=== PATIENT | female | born 1965 | race Caucasian/White ===

== ENCOUNTER 2021-07-29 07:14 | Day surgery (SDC) | payer BC ==
[~2021-07-29] VITALS: Ht 177.8 cm; Wt 102.3 kg
[~2021-07-29 07:14] MED LIST: ASPIRIN EC81 MG PO; B COMPLEX1 EACH PO; K-TAB ER20 MEQ PO; MACA500 MG PO; MAGNESIUM30 MG PO; MULTIVITAMINS1 EAC7 PO; NATURE-THROID32.5 MG PO; OXAPROZIN600 MG PO; PROBIOTIC250 MG PO; VITAMIN D310 MC4 PO
--- NOTE | 2021-07-29 08:55 | NUR ---
07/29/21 0855 Krystyna Spaulding 0852 PATIENT ARRIVES TO PACU RESTING WITH EYES CLOSED. DOES NOT RESPOND TO VERBAL STIMULI. RESP EVEN AND UNLABORED, NC AT 3 LITERS TURNED OFF ON ARRIVAL.
--- NOTE | 2021-07-30 09:44 | OR ---
[facility] [place] [facility] [address], [place] [address] Signed DATE OF OPERATION: 07/29/2021 SURGEON: Calderon Villagomez MD PREOPERATIVE DIAGNOSES: 1. Hyperplastic colonic polyps at age 48 in 2013. 2. Minimal sigmoid diverticulosis. 3. Maternal grandmother with colon cancer in her early 60s. 4. Intermittent rectal bleeding. 5. Question of hemorrhoids. POSTOPERATIVE DIAGNOSES: 1. Minimal to moderate internal and external hemorrhoids. 2. Long redundant colon. 3. No obvious diverticula on this occasion. PROCEDURE: Colonoscopy without biopsy. ESTIMATED BLOOD LOSS: None. INDICATIONS: Manuela is a 55-year-old female, who was asked to see me for a followup colonoscopy. She has had intermittent constipation and rectal bleeding since she was quite young. In 1993, she underwent a colonoscopy. She then came in 2013 at the age of 48. I removed a tiny hyperplastic polyp in her sigmoid colon. She seemed to have very minimal shallow sigmoid diverticula at that time. She had done well with Versed and fentanyl. We know her maternal grandmother was diagnosed with colon cancer in early 60s. Manuela told me she does see some blood occasionally with her bowel movements. On her female exam, she thought maybe there were hemorrhoids mentioned. I had given her a brochure on hemorrhoids in the office. I encouraged her to purchase Benefiber and Balneol lotion to be used as needed. In the office, I had given her a booklet on colonoscopy. She remembers the test quite well. There is risk including, but not limited to gas bloating, crampy abdominal pain, bleeding, perforation requiring surgery, and missed diagnosis. We also reviewed the need for IV conscious sedation. She had expressed understanding and wished to proceed. PROCEDURE NOTE: Manuela was taken into our endoscopy suite and placed in the left lateral decubitus Electronically Signed By: CALDERON VILLAGOMEZ MD 07/30/21 0944 PATIENT NAME: MANUELA TORRES OPERATIVE REPORT DATE OF : 61 REPORT #: [id number] PHYSICIAN: CALDERON VILLAGOMEZ MD PCP: WILFREDO COPPOLA PAC REPORT IS CONFIDENTIAL AND NOT TO BE RELEASED WITHOUT AUTHORIZATION [facility] [address], [place] [address] Signed position. She reminded us that she drinks a little wine every night with her at suppertime. We gave her a total of 7 mg of Versed and 100 mcg of fentanyl. A digital rectal exam had been performed and she does have small circumferential external hemorrhoids. She has a good sphincter tone. 5 feet 10 inches tall, she has a long anal canal probably 4 cm in length. She had good sphincter tone. The adult colonoscope was introduced and advanced under direct visualization of camera. Again with her height, she has very long redundant colon. It took quite some time to get up through the left colon. We had to use extra sedation abdominal compression even rotating her into the supine position. In the end, she probably would benefit from monitored anesthesia care with propofol infusion. Fortunately, her prep was quite excellent. We could easily see the appendiceal orifice and the ileocecal valve. The scope was slowly withdrawn. On this occasion, we saw no diverticula. We saw no polyps. Once in the rectum, the scope was retroflexed and she does have just minimal internal hemorrhoid columns. After this, the gas was suctioned out and the colonoscope removed. Overall, Manuela tolerated the procedure well, but may need monitored anesthesia care in the future as described above. RECOMMENDATIONS: Manuela can follow up my office in 5 years for a repeat colonoscopy. She might consider monitored anesthesia care in the future. Calderon Villagomez MD ALB/MODL /[id number] cc: Wilfredo Villagomez MD Copies: CALDERON VILLAGOMEZ MD ~ Electronically Signed By: CALDERON VILLAGOMEZ MD 07/30/21 0944 PATIENT NAME: MANUELA TORRES OPERATIVE REPORT DATE OF : 61 REPORT #: [id number] PHYSICIAN: CALDERON VILLAGOMEZ MD PCP: WILFREDO COPPOLA PAC REPORT IS CONFIDENTIAL AND NOT TO BE RELEASED WITHOUT AUTHORIZATION
== END 2021-07-29 09:35 | disposition home or self-care (01) ==
LOC: DS 07:14 → OPS 07:14 → DS 08:15 → OPS 08:15
PROVIDERS: ATTEND Colon & Rectal Surgery
PROC: 0DJD8ZZ Inspection of Lower Intestinal Tract, Via Natural or Artificial Opening Endoscopic (ICD-10-PCS; principal; 2021-07-29 08:15)
DX: K64.8 Other hemorrhoids (principal); K64.4 Residual hemorrhoidal skin tags; Q43.8 Other specified congenital malformations of intestine; E03.9 Hypothyroidism, unspecified; Z80.0 Family history of malignant neoplasm of digestive organs; Z85.9 Personal history of malignant neoplasm, unspecified; Z88.5 Allergy status to narcotic agent; Z91.048 Other nonmedicinal substance allergy status; Z87.19 Personal history of other diseases of the digestive system
CPT/HCPCS: 99153; G0500; J2250; J3010; J7121

== ENCOUNTER 2023-07-12 09:03 | Inpatient (IN) | payer BC ==
[2023-07-12] VITALS (17 sets, daily range): BP systolic 103–1017; BP diastolic 72–100
[~2023-07-12] VITALS: Ht 177.8 cm; Wt 96.6 kg
[~2023-07-12 09:03] MED LIST changes: +K2 PLUS D3 TAB1 EACH PO; -MAGNESIUM30 MG PO; -MULTIVITAMINS1 EAC7 PO; +OPTIMAG 125125 MG PO; +PUREVIT DUALFE1 EACH PO; -VITAMIN D310 MC4 PO
[2023-07-12 09:30] LABS: BASOPHILS 1.3 % (0-2); EOSINOPHILS 2.9 % (0-6); HEMATOCRIT 45.4 % (35.0-50.0); HEMOGLOBIN 15.5 g/dL (12.0-18.0); LYMPHOCYTES 36.2 % (24-44); MCH 31.7 (27-36); MCHC 34.1 g/dl (30-36); MCV 92.7 fl (81-99); MONOCYTES 7.7 % (0-12); NEUTROPHILS 51.9 % (39-80); PLATELET COUNT 270 K/uL (140-440); RDW 12.6 (10.5-15.0)
[2023-07-12 09:52] LABS: ALBUMIN/GLOBULIN RATIO 1.18 (1.1-2.4); ANION GAP 11.1 (7-21); BILIRUBIN, TOTAL 0.8 ng/dL (0.2-1.0); BUN/CREATININE RATIO 17.07 (6.0-28.6); CREATININE, SERUM 0.82 mg/dL (0.55-1.02); POTASSIUM 4.1 mmol/L (3.5-5.1); PROTEIN, TOTAL 7.4 g/dL (6.4-8.2)
[2023-07-12 11:10] LABS: PROTIME 12.8 Sec (11.2-14.2)
[2023-07-12 11:12] LABS: PARTIAL THROMBOPLASTIN TIME 26.5 Sec (22.9-41.3)
[2023-07-12] MEDS ORDERED: PROGESTERONE100 MG PO (11:38)
[2023-07-12] MEDS ORDERED: DOTTI1 EACH TD (11:38)
[2023-07-12] MEDS ORDERED: COD LIVER OIL1 EAC4 PO (12:16)
[2023-07-12 12:43] LABS: INFLUENZA B NAA NEGATIVE (NEGATIVE); RESPIRATORY SYNCYTIAL VIR NAA NEGATIVE (NEGATIVE)
[2023-07-12] MEDS ORDERED: ARMOUR THYROID90 MG PO (12:58)
--- NOTE | 2023-07-12 13:35 | NUR ---
PT ARRIVES TO ROOM 127 VIA STRETCHER BY THIS RN - ALERT AND ORIENTED. VS WNL, NSR, SP02 100% ON ROOM AIR. PT AMBULATES SELF TO BATHROOM FROM STRETCHER, STEADY ON HER FEET WITHOUT SOB. LUNG SOUNDS CLEAR. HEPARIN DRIP INFUSING AT 18U/KG/HR INTO LEFT WRIST IV SITE. IV SITES PATENT X2. PAIN REPORTED IN LEFT SHOULDER ONLY, RATES 3/10, HOME LIDOCANE PATCH IN PLACE. PT HUNGRY, ORDER PLACED WITH KITCHEN. FAMILY AT BEDSIDE, ALL QUESTIONS ANSWERED. ORIENTED TO CALL LIGHT.
--- NOTE | 2023-07-12 14:30 | NUR ---
FOOD TRAY DELIVERED TO ROOM - PT REMAINS ALERT AND ORIENTED WITHOUT RESPIRATORY DISTRESS, VS ON MONITOR WNL INCLUDING 100% SPO2 ON ROOM AIR. ESTROGEN PATCH REMOVED FROM BIKINI AREA BY PT - EDUCATION ON ROLE OF ESTROGEN AND CLOTTING PROVIDED. PT DENIES FURTHER NEEDS AT THIS TIME.
--- NOTE | 2023-07-12 15:09 | NUR ---
RN ROUNDING ON PT - RESTING IN BED WITH EYES CLOSED, RR EVEN AND UNLABORED. VS WNL ON MONITOR. ON COUCH. CALL LIGHT IN REACH.
--- NOTE | 2023-07-12 17:00 | NUR ---
DINNER PROVIDED TO PT - RESTING COMFORTABLY IN BED. ASSESSMENT COMPLETE - NO CHANGES, LUNGS CLEAR, NSR ON MONITOR, DENIES PAIN OR SOB.
--- NOTE | 2023-07-12 17:25 | NUR ---
lab in room to draw timed aPTT.
--- NOTE | 2023-07-12 17:47 | NUR ---
PT ASSISTED UP TO BATHROOM TO VOID, STEADY ON FEET. AMBULATES WITHOUT SOB OR PAIN. BACK TO BED WITH TABLE AND CALL LIGHT IN REACH. AT SIDE.
--- NOTE | 2023-07-12 19:15 | NUR ---
CHANGE OF SHIFT REPORT FORM TYRONE Rueda RN, PATIENT LAST APPT LAB HIGH, SHE NOTIFIED , WAITING ON RE-DRAW RESULTS AT THIS TIME.
--- NOTE | 2023-07-12 19:15 | NUR ---
MADHAV SHAVER PATIENT, RE-DRAW RESULT OF APPT NOT BACK, HEPARIN DRIP ON STANBY AT THIS TIME WHILE WAITING RESULTS. PER REPORT AWARE OF INITIAL HIGH LAB RESULT. PATIENT IS ALERT AND ORIETNED, HER SPOUSE IN ROOM AT BEDSIDE, PATIENT REPORTS NO NEEDS AT THIS TIME, NO COMPLAINT OF PAIN OR NAUSEA. FRESH WATER PROVIDED, OFFERED TO SPOUSE HE DECLINED, ASSESSMENT COMPLETE.
--- NOTE | 2023-07-12 19:56 | NUR ---
NOTIFIED OF RE-DRAW LAB RESULTS, HE GAVE ORDER TO FOLLOW PROTOCOL, OF HOLDING HEPARIN DRIP FOR ONE HOUR THEN RESTART GTT PER PROTOCOL.
--- NOTE | 2023-07-12 21:01 | NUR ---
PATIENT OXYGEN SATURATION DROPPED TO 89-90% ON ROOM WHILE SLEEPING, THIS RN INTO PATIENT ROOM TO ASSESS, PATIENT REPORTS SHE DOES NOT HAVE A HISTORY OF SLEEP APNEA. PATIENT IS CURRENTLY SLEEPING ON HER BACK, THIS RN ASKED "DO YOU USUALLY SLEEP ON YOUR BACK?" SHE SAID "NO, I USUALLY SLEEP ON MY SIDE" DISCUSSED WITH PATIENT SHE CAN SLEEP ON HER SIDE IF SHE WOULD LIKE, SHE SAID "I WASNT SURE WITH ALL THESE LINES" THIS RN ASSISTED PATIENT TO REARRANGE MONITOR WIRES AND IV LINE FOR PATIENT TO TURN ON HER SIDE, ASSESSED LUNG SOUNDS NO CHANGE FROM START OF SHIFT, DISCUSSED IS HER OXYGEN SATURATION DROPS WHILE SLEEPING ON HER SIDE WE WILL PLACE OXYGEN FOR SLEEP, PATIENT AGREED.
--- NOTE | 2023-07-12 22:05 | NUR ---
PATIENT PLACED ON 2L OXYGEN N.C., WHILE SLEEPING TO MAINTAIN OXYGEN SATURATION GREATER THAN 90%, SHE HAS TURNED BACK TO SLEEPING ON HER BACK SHE REPORTS THAT SIDE SLEEPING IS NOT COMFORTABLE WITH HER SHOULDER PAIN. 96% OXYGEN SATURATION AT THIS TIME ON 2L VIA N.C.
[2023-07-13] VITALS (16 sets, daily range): BP systolic 91–127; BP diastolic 63–94
--- NOTE | 2023-07-13 | NUR ---
LAB DRAW FOR PTT, PATIENT UP TO BATHROOM TO VOID, TOLERATED ACTIVITY WELL WITH STANDBY ASSIST/CORD MANAGEMENT. PATIENT REPORTS SHE HAS NO DIZZINESS, NO SHORTNESS OF BREATH. VOIDED 500ML MILDLY CONCENTRATED YELLOW URINE. SHE HAS NO FURTHER REQUESTS, CALL LIGHT IN REACH.
--- NOTE | 2023-07-13 00:35 | NUR ---
HEPARIN DRIP ON STANDBY FOR ELEVATED >250 PTT LAB, CALLED TO UPDATE, HE SAID "CONTINUE PER PROTOCOL". HE GAVE ORDER TO HAVE APTT LABS EVERY 4 HOURS TO MONITOR MORE CLOSELY.
--- NOTE | 2023-07-13 01:30 | NUR ---
INTO PATIENT ROOM TO TITRATE AND RESTART HEPARIN DRIP, PATIENT ALERT TO STAFF AT BEDSIDE, SHE VERBALIZED NO NEEDS AT THIS TIME. JULES Bustamante RN SECOND CHECK FOR TITRATION OF HEPARIN DRIP. CALL LIGHT IN REACH. NEXT PPT LAB ORDERED FOR 0530.
--- NOTE | 2023-07-13 04:46 | NUR ---
PATIENT RESTING IN BED EYES CLOSED, RESPIRATION REGULAR AT 14/MIN, 97% OXYGEN SATURATION. SLIGHT SNORING NOTED.
--- NOTE | 2023-07-13 05:15 | NUR ---
LAB INTO PATIENT ROOM FOR 0530 TIMED PTT, PATIENT ALERT AND ORIENTED, SHE REPORTS PAIN IN LEFT SHOULD IS IMPROVING, AND TOLERABLE AT THIS TIME. PROVIDED FRESH ICE WATER AND ENCOURAGED HER TO DRINK MORE. SHE IS NOW ON ROOM AIR WHILE AWAKE.
[2023-07-13 05:26] LABS: BASOPHILS 1.3 % (0-2); HEMATOCRIT 42.2 % (35.0-50.0); HEMOGLOBIN 14.3 g/dL (12.0-18.0); LYMPHOCYTES 55.6 % (24-44); MCH 31.5 (27-36); MCHC 33.9 g/dl (30-36); MCV 92.7 fl (81-99); MONOCYTES 6.6 % (0-12); NEUTROPHILS 32.5 % (39-80); PLATELET COUNT 243 K/uL (140-440); RBC 4.56 M/ul (4.3-5.7); RDW 12.9 (10.5-15.0)
[2023-07-13 05:32] LABS: ANION GAP 10.5 (7-21); BUN/CREATININE RATIO 18.18 (6.0-28.6); CALCIUM 8.9 mg/dL (8.5-10.1); CREATININE, SERUM 0.77 mg/dL (0.55-1.02); POTASSIUM 4.5 mmol/L (3.5-5.1)
--- NOTE | 2023-07-13 05:48 | NUR ---
PT UP TO BATHROOM, VOIDED 300ML. SHE TOLERATED ACTIVITY WELL WITH ASSISTANCE WITH LINE MANAGEMENT. PATIENT UP IN RECLINER AT THIS TIME. V/S STABLE, ASSESSMENT COMPLETE. HEPARIN DRIP ON STANDBY PER PROTOCOL FOR 30MIN. NO NEW CONCERNS THIS AM.
--- NOTE | 2023-07-13 06:29 | NUR ---
PT UP TO BATHROOM TO VOID THEN BACK TO BED, TOLERATED ACTIVITY WELL WITH ASSISTANCE WITH MONITOR/IVF LINES. PT REPORTS NO OTHER NEEDS AT THIS TIME, CALL LIGHT IN REACH.
--- NOTE | 2023-07-13 07:56 | NUR ---
PT SITTING UP IN BED ON PHONE. ASSESSMENT COMPLETE. VSS. DISCUSSED LEFT SHOULDER PAIN WITH PT. PT HAS LIDOCAINE PATCH IN PLACE BUT REPORTS 5/10 ACHING PAIN WHEN SITTING UP. PT GIVEN MORNING MEDICATIONS SEE EMAR. HEPARIN DRIP CONTINUED. PT DENEIS OTHER NEEDS OR CONCERNS AT THIS TIME. CALL LIGHT AND BELONGINGS WITHIN REACH
--- NOTE | 2023-07-13 08:16 | NUR ---
CALL TO REGARDING PT'S UNRELIEVED LEFT SHOULDER PAIN. DR TO COME AND ASSESS PT.
--- NOTE | 2023-07-13 08:27 | NUR ---
MD IN ROOM. ASSESSMENT COMPLETED. ORDERS RECEIVED FOR HEAT/ICE THERAPY AND IV PAIN MEDICATIONS. PT AGREEABLE WITH PLAN AND REQUESTS ICE THERAPY.
--- NOTE | 2023-07-13 08:35 | NUR ---
MORPHINE 4 MG IV GIVEN FOR LEFT SHOULDER PAIN, RATES 5/10.
--- NOTE | 2023-07-13 09:41 | NUR ---
PATIENT ALERT AND ORIENTED. SITTING IN BED. STATES SHE LIVES IN A HOUSE WITH GOLD, SPOUSE. HOUSE DOES HAVE STAIRS, RECENTLY SHORT OF BREATH WHEN USING STAIRS, EDUCATED LIKELY DUE TO MULTIPLE PE'S. VERBALIZES UNDERSTANDING. OTHERWISE, NO ISSUES WITH STAIRS. PATIENT STATES SHE HAS NO DME AT HOME, NOT LIKELY TO NEED ANY AT THIS TIME. STATES SHE STILL DRIVES, BUT SPOUSE IS ABLE TO ASSIST WITH TRANSPORTATION IF NEEDED. DENIES ISSUES WITH FINANCES. STATES NO ISSUES OBTAINING FOOD, MEDICATIONS, ETC. SPOUSE CONFIRMS. DENIES ANY LIKELY NEEDS AT THIS TIME. DEMOGRAPHICS CONFIRMED. INFORMED TO NOTIFY STAFF IF NEEDS ARISE. VERBALIZE UNDERSTANDING.
--- NOTE | 2023-07-13 09:50 | NUR ---
PT UP TO BATHROOM AMBULATORY WITH RN IN ROOM. PT TOLERATES. PT VOIDS W/O DIFFICULTY AND BACK TO BED. YG KUHN ASSISTS IN HAIR CARE AND HYGIENE.
[2023-07-13] MEDS ORDERED: GRAPE SEED EXTR50 MG PO (10:05)
[2023-07-13] MEDS ORDERED: UVA URSI PO (10:05)
[2023-07-13] MEDS ORDERED: ADRENAL OPTIMI1 EACH PO (10:09)
--- NOTE | 2023-07-13 10:11 | NUR ---
MED REC COMPLETE
--- NOTE | 2023-07-13 10:50 | NUR ---
PT RESTING IN BED WITH EYES CLOSED. RESP EVEN AND UNLABORED. CALL LIGHT WITHIN REACH
--- NOTE | 2023-07-13 11:35 | NUR ---
lab in room to draw timed ptt lab
--- NOTE | 2023-07-13 11:56 | NUR ---
LUNCH TRAY BROUGHT IN ROOM. PT REPORTS HEAT THERAPY WORKED BETTER FOR HER SHOULDER PAIN. DENIES OTHER NEEDS.
--- NOTE | 2023-07-13 12:36 | NUR ---
LUNCH TRAY REMOVED. PT VISITING WITH FAMILY IN ROOM. PT DENIES OTHER NEEDS. PT REPORTS DECREASE IN PAIN IN SHOULDER. PT REQUESTING TO GET UP AND USE RESTROOM WHEN VISITORS LEAVE. CALL TO IMAGING REGARDING ECHO ORDER. NO FLOUR WORKER OR LOCUM IN HOUSE AT THIS TIME. WILL UPDATE MD.
--- NOTE | 2023-07-13 13:00 | NUR ---
UP TO BR. DENIES INCREASE SHORTNESS OF BREATH WITH EXERTION. VOIDED 400 ML OF CLEAR YELLOW URINE. BACK TO BED W/O INCIDENT. RATES SHOULDER PAIN 5/10. CONTINUES WITH HEAT TO LEFT SHOULDER.
--- NOTE | 2023-07-13 14:15 | NUR ---
PT RESTING IN BED WITH EYES CLOSED. RESP EVEN AND UNLABORED. CALL LIGHT NEXT TO PT IN BED.
--- NOTE | 2023-07-13 14:40 | NUR ---
PT APPEARED TO BE SLEEPING. DID NOT DISTURB. PRAYED FOR HEALING AND ONGOING PEACE. LEFT GUIDEPOST WITH PRAYER CARD AND CONTACT CARD.
--- NOTE | 2023-07-13 15:15 | NUR ---
PT CONTINUES TO SLEEP WITH EYES CLOSED. RESP EVEN AND UNLABORED. VSS.
--- NOTE | 2023-07-13 15:58 | NUR ---
PT RESTING IN BED WITH EYES CLOSED. PT WAKES TO RN IN ROOM. PT REPORTS NO PAIN IN LEFT SHOULDER AT REST AND ONLY MINIMAL PAIN ON INHALATION. PT DENIES NEEDS AT THIS TIME. CALL LIGHT WITHIN REACH
--- NOTE | 2023-07-13 16:19 | NUR ---
UPDATE GIVEN TO DR. FERNANDEZ. DISCUSSED NO BOILER MAKER IN HOUSE. MD DISCUSSES ORDERING ULTRASOUND OF LEFT ARM/SHOULDER TO BE COMPLETED THIS EVENING/TOMORROW MORNING.
--- NOTE | 2023-07-13 16:57 | NUR ---
ULTRASOUND IN ROOM.
--- NOTE | 2023-07-13 17:17 | NUR ---
US COMPLETE. PT TOLERATED WELL AND DID NOT HAVE PAIN DURING THE EXAM. PT REPORTS 2/10 PAIN IN SHOULDER AND HEAT THERAPY CONTINUED. IN ROOM WITH DINNER. PT DENIES OTHER NEEDS.
--- NOTE | 2023-07-13 18:31 | NUR ---
PTT RESULTED. NO CHANGE IN HEPARIN DRIP RATE PER PROTOCOL. PT REPORTS 1.5-2/10 PAIN IN SHOULDER. PT DENIED SOB WHEN AMBULATING TO BATHROOM. PT VOIDS W/OUT COMPLICATIONS. PT BACK TO BED. VSS. PT DENIES OTHER NEEDSA THIS TIME. AT BEDSIDE. CALL LIGHT GIVEN. FRESH WARM PACK APPLIED TO SHOULDER
--- NOTE | 2023-07-13 20:06 | NUR ---
RN RECIEVED REPORT AND TOOK OVER CARE. PT VS ARE STABLE. PT REMAINS ON ROOM AIR, HAS COMPLAINTS OF SHOULDER PAIN WITH DEEP BREATHS. PRN TYLENOL GIVEN. PT DID USE THE INCENTIVE AND WAS ABLE TO ACHIEVE 1250mL WITH MINIMAL PAIN. PT GENERAL ASSESSMENT WAS WITH IN NORMAL RANGE. PT WAS EDUCATED ON CURRENT ILLNESS AND MEDICATIONS. ALL QUESTIONS AND CONCERNS ADDRESSED. CALL LIGHT WITHIN REACH. PT REPOSITIONS SELF.
--- NOTE | 2023-07-13 20:31 | NUR ---
PT UP TO BATHROOM. INCREASED PAIN WITH GET OUT OF BED. PT BACK TO BED, PRN MORPHINE GIVEN. ALL QUESTIONS AND CONCERNS ADRESSED. CALL LIGHT WITH IN REACH. PT REPOSITIONS SELF.
--- NOTE | 2023-07-13 20:51 | NUR ---
PT IS RESTING SPO2 DECREASING TO TO 88%, 2L NASAL CANNULA PLACED AT THIS TIME WHILE PATIENT IS SLEEPING.
--- NOTE | 2023-07-13 22:00 | NUR ---
pt is resting in bed. no complaints of pain at this time. vs are with in normal range. all questions and concerns addressed. call lightw with in reach. pt repositions self. bed in locked and lowered position.
--- NOTE | 2023-07-13 22:44 | EKG ---
[facility] [address] [place] [address] Signed Normal sinus rhythm Normal ECG No previous ECGs available Confirmed by Nighat Fernandez MD () on 07/13/2023 10:44:28 PM Electronically Signed By: NIGHAT FERNANDEZ MD 07/13/23 2244 PATIENT NAME: ANA TORRES Electrocardiogram DATE OF : 61 PHYSICIAN: NIGHAT FERNANDEZ MD REPORT #: [id number] REPORT IS CONFIDENTIAL AND NOT TO BE RELEASED WITHOUT AUTHORIZATION
[2023-07-14] VITALS (8 sets, daily range): BP systolic 93–116; BP diastolic 69–87
--- NOTE | 2023-07-14 00:35 | NUR ---
pt is resting in bed. vs are with in normal limits, no changes in pt assessment at this time. pt does not complain of any pain and expresses no current needs at this time. call light with in reach. pt repostions self. bed is locked and lowered to safe height.
--- NOTE | 2023-07-14 02:00 | NUR ---
PT IS IN BED RESTING. NO COMPLAINTS OF PAIN AT THIS TIME. VS ARE WITH IN NORMAL RANGE. ALL QUESTIONS AND CONCERNS ADDRESSED. CALL LIGHT WITH IN REACH. PT REPOSITIONS SELF. BED LOCKED AND IN LOWEST POSITION.
--- NOTE | 2023-07-14 04:35 | NUR ---
PT IS RESTING IN BED. VS ARE STABLE. NO SIGNIFICANT CHANGES IN PTS GENERAL ASSESSMENT. PT DOES COMPLAIN OF A HEADACHE BUT DENIES PRN MEDICATION AT THIS TIME. ALL QUESTIONS AND CONCERNS ADDRESSED. CALL LIGHT WITH IN REACH. PT REPOSITIONS SELF, BED IS LOCKED AND IN LOWEST POSITION.
[2023-07-14 05:25] LABS: BASOPHILS 1.2 % (0-2); EOSINOPHILS 2.9 % (0-6); HEMATOCRIT 42.1 % (35.0-50.0); HEMOGLOBIN 14.3 g/dL (12.0-18.0); LYMPHOCYTES 51.8 % (24-44); MCH 31.7 (27-36); MCHC 33.9 g/dl (30-36); MCV 93.4 fl (81-99); MONOCYTES 6.8 % (0-12); NEUTROPHILS 37.3 % (39-80); PLATELET COUNT 242 K/uL (140-440); RDW 12.7 (10.5-15.0)
--- NOTE | 2023-07-14 06:07 | NUR ---
PT IS UP TO BATHROOM AND BACK TO BED. VS WITH IN NORMAL RANGE. PT DOES COMPLAIN OF SLIGHT LEFT SHOULDER PAIN BUT DECLINES PRN AT THIS TIME. PT REPOSITIONS SELF. aPTT CAME BACK THERAPUTIC AT 71.7, HEPARIN DRIP REMAIN INFUSING AT 10 UNITS/KG/HR. CALL LIGHT WITH IN REACH. BED IS LOCKED AND IN THE LOW POSITION. ALL QUESTIONS AND CONCERNS ADDRESSED AT THIS TIME.
--- NOTE | 2023-07-14 07:30 | NUR ---
REPORT RECEIVED. ASSESSMENT DONE. LESS LEFT SHOULDER PAIN TODAY. HEPARIN GTT PATENT. TALKED WITH PATIENT ABOUT POC FOR THE DAY. INDICATES UNDERSTANDING. VSS. ENC MOVEMENT.
--- NOTE | 2023-07-14 08:30 | NUR ---
TOOK BREAKFAST WELL. DENIES NAUSEA. NO FUTHER CHANGES. RESTING IN BED WITH HOB AT APPROX 45 DEGRESS. LEFT SHOULDER WITH INCREASE PAIN DEPENDING ON POSITION OF HOB. IF HOB IS MORE UPRIGHT, HAS INCREASE PAIN. DENIES NEED FOR PAIN MEDICATION. IS IN ROOM.
--- NOTE | 2023-07-14 10:34 | NUR ---
HEPARIN GTT DC'D AND ELIQUIS 10 MG PO GIVEN PER MD ORDERS.
--- NOTE | 2023-07-14 10:45 | NUR ---
PHYS THERAPY HERE TO WORK WITH PATIENT.
--- NOTE | 2023-07-14 10:55 | NUR ---
DR. FERNANDEZ HERE TO SEE PATIENT AND DISCUSS DISCHARGE.
--- NOTE | 2023-07-14 11:00 | NUR ---
NORCO 1 TAB GIVEN FOR LEFT SHOULDER DISCOMFORT.
[2023-07-14] MEDS ORDERED: ELIQUIS5 MG PO (11:06)
[2023-07-14] MEDS ORDERED: HYDROCODON-ACE1 EA10 PO (11:07)
--- NOTE | 2023-07-14 11:19 | NUR ---
PLAN IS TO DISCHARGE PATIENT TODAY.
--- NOTE | 2023-07-14 12:20 | NUR ---
STATES SHE HAS LESS PAIN IN HER LEFT SHOULDER AFTER BEING MEDICATED WITH NORCO. SITTING UP IN BED EATING LUNCH. PHARMACY HERE TO TALK WITH PATIENT ABOUT DISCHARGE MEDICATION. WILL DISCHARGE PATIENT AFTER LUNCH.
--- NOTE | 2023-07-14 13:20 | NUR ---
DISCHARGED TO HOME. W/C USED BY NURSING STAFF TO TAKE PATIET OUT. TO DRIVE PATIENT HOME.
--- NOTE | 2023-07-14 15:32 | NUR ---
Referral with letter faxed to Brittani Lin requesing signature for OP PT through [facility] at pts request as she has used them in the past.
--- NOTE | 2023-07-14 15:43 | NUR ---
Chart faxed to [facility] to resume wound care.
== END 2023-07-14 13:18 | disposition home or self-care (01) | DRG 176 ==
LOC: ED 09:03 → CCU 13:09
PROVIDERS: Internal Medicine; ADMIT Internal Medicine; ATTEND Internal Medicine
DX: I26.94 Multiple subsegmental thrombotic pulmonary emboli without acute cor pulmonale (principal); E87.1 Hypo-osmolality and hyponatremia; M25.512 Pain in left shoulder; E03.9 Hypothyroidism, unspecified; Z98.890 Other specified postprocedural states; Z88.5 Allergy status to narcotic agent; Z88.8 Allergy status to other drugs, medicaments and biological substances; Z79.899 Other long term (current) drug therapy; Z11.52 Encounter for screening for COVID-19
CPT/HCPCS: 36415; 71045; 71260; 80048; 80053; 83880; 84484; 85025; 85379; 85610; 85730; 87502; 93005; 93010; 93970; 93971; A9270; J1644; J2270; Q9967; U0002